=== PATIENT | male | born 1980 | race Caucasian/White ===

== ENCOUNTER → 2019-01-24 | Day surgery (SDC) | payer BC ==
[~2019-01-24] MED LIST: BUPIVACAINE HCL 0.5 % INJ/PF 30 ML SDV ONE; METHYLPREDNISOLONE ACETATE INJ 40 MG/1 ML ML ONE
--- NOTE | 2019-01-24 15:05 | RADIOLOGY REPORT (SQ) ---
EXAM DESCRIPTION: FLUORO/NEEDLE PLACEMENT; INJECT/ASPIR WRIST/ELB/ANKLE COMPLETED DATE/TIME: 01/24/2019 2:45 pm REASON FOR STUDY: M19.071 PRIMARY OSTEOARTHRITIS, RIGHT ANKLE AND FOOT M19.071 PRIMARY OSTEOARTHRIT IS, RIGHT ANKLE AND FOOT COMPARISON: None. FLUOROSCOPY TIME: 0.43 minutes 1 Images saved to PACS. LIMITATIONS: None. PROCEDURE: Procedure, risks, benefits and alternatives explained to patient who then gave written co nsent. The right ankle was marked and a time out was called for correct marking verification. Entry site marked using fluoroscopic guidance. Ankle prepped and draped using sterile technique. Local a nesthesia achieved using 1% lidocaine injection. Hypodermic needle introduced into the joint space u nder direct fluoroscopic visualization. Non-ionic contrast instilled to confirm intra-articular posi tion. 5 mL of lidocaine was injected. 40 mg of Solu-Medrol was injected. Needle removed and entry site covered with sterile bandage. No immediate complications noted. TECHNIQUE: Digital images acquired during fluoroscopy and stored on PACS. Patient immediately take n to the CT suite for additional imaging. INJECTION LOCATION: Right ankle CONTRAST TYPE AND AMOUNT: 1 mL. Pre injection pain level: 5/10 Post injection pain level: 3/10 IMPRESSION: Successful needle placement and therapeutic injection of the right ankle. COMMENT: Quality ID [id number]: Final reports for procedures using fluoroscopy that document radiation exp osure indices, or exposure time and number of fluorographic images (if radiation exposure indices are not available) TECHNICAL DOCUMENTATION: JOB ID: [id number] [employer]- All Rights Reserved Reading location - IP/workstation name: [email or web address]
== END ==
LOC: RAD 13:59
PROVIDERS: ATTEND Orthopaedic Surgery
DX: M19.071 Primary osteoarthritis, right ankle and foot (principal)
CPT/HCPCS: 20605; 77002; J3490; J1030